=== PATIENT | male | born 1950 | race Two or more races ===

== ENCOUNTER 2017-11-22 06:50 | Day surgery (SDC) | payer OTHER ==
[~2017-11-22 06:50] MED LIST: ACCUPRIL40 MG PO; PRILOSEC10 MG PO; TENORMIN50 M1 PO
== END 2017-11-22 11:45 | disposition home or self-care (01) ==
LOC: AMB-ENDOS 06:50
DX: D12.2 Benign neoplasm of ascending colon (principal)

== ENCOUNTER 2018-06-29 08:29 | Outpatient (CLI) | payer OTHER | END 2018-06-29 08:35 | disposition home or self-care (01) | LOC: TOM 08:29 | DX: C20 Malignant neoplasm of rectum (principal); K62.5 Hemorrhage of anus and rectum; K62.89 Other specified diseases of anus and rectum; R59.0 Localized enlarged lymph nodes ==

== ENCOUNTER 2018-08-22 07:40 | Day surgery (SDC) | payer OTHER | END 2018-08-22 13:45 | disposition home or self-care (01) | LOC: AMB-ENDOS 07:40 | DX: K57.30 Diverticulosis of large intestine without perforation or abscess without bleeding (principal) ==

== ENCOUNTER 2024-09-25 11:30 | Inpatient (IN) | payer OTHER ==
[~2024-09-25] VITALS: Ht 180.3 cm; Wt 83.9 kg
--- NOTE | 2024-09-25 11:51 | NUR ---
SE RECIBE PACIENTE ALERTA Y ORIENTADO X3 REFIERE VENIR POR DOLOR EN AREA LUMBAR CRONICA Y CON REFERIDO DE DR.NICOLAS MELISSA ANDRE PARA SER ADMITIDO PARA TX Y ESTUDIOS DIAGNOSTICO. PACIENTE CON HX DE CANCER.
[2024-09-25] MEDS ORDERED: TRAMADOL HCL 50 MG TABLET PO ONE (12:45)
--- NOTE | 2024-09-25 13:37 | NUR ---
PTE EVALUADO POR LA DRA. TONEY. SAUL MARAVILLAAD ADMINISTRA MEDICAMENTO PO. SE NOTIFICA CT PENDIENTE.
[2024-09-25] MEDS ORDERED: MORPHINE SULFATE 2 MG/ML CARTRIDGE IV SCH (14:30)
[2024-09-25] MEDS ORDERED: FAMOtidine 10 MG/ML (4ML VIAL) IV ONE (14:30)
[2024-09-25] MEDS ORDERED: LOPERAMIDE HCL 2 MG CAPSULE PO ONE ×2 (15:15→15:19)
[2024-09-25] MEDS ORDERED: FAMOTIDINE/PF 20 MG/2 ML VIAL ONE (15:19)
--- NOTE | 2024-09-25 15:24 | NUR ---
SE ADMINISTRA MEDICAMENTO Y SE EXTRAEN MUESTRAS BAJO MEDIDAS ASEPTICAS.
[2024-09-25 15:41] LABS: HEMATOCRIT 31.7 % (39.0-48.0); HEMOGLOBIN 10.2 g/dL (13-16.00); MEAN CELL VOLUME 84.1 fL (80.0-100.00); MEAN CORPUSCULAR HEMOGLOBIN 27.2 pg (27.00-32.0); MEAN CORPUSCULAR HGB CONC 32.3 g/dl (32.0-36.0); PLATELET COUNT 415 K/uL (150-450); RED BLOOD COUNT 3.76 M/uL (4.00-6.00); RED CELL DISTRIBUTION WIDTH 16.1 % (11.5-14.5)
[2024-09-25 15:56] LABS: INR 1.01; PARTIAL THROMBOPLASTIN TIME 27.6 SECONDS (22.0-34.0)
[2024-09-25 16:01] LABS: ALBUMIN 2.6 gm/dL (3.4-5.0); BILIRUBIN TOTAL 0.15 mg/dL (0.3-1.2); CALCIUM 9.8 mg/dL (8.5-10.1); CREATININE SERUM 1.51 mg/dL (0.70-1.30); GFR 45.65; GLOBULINA 5.6 G/DL (2.4-3.5); POTASSIUM 5.79 mEq/L (3.5-5.1); TOTAL PROTEIN 8.2 gm/dL (6.4-8.2)
[2024-09-25] MEDS ORDERED: DEXTROSE 5 %-0.45 % SOD CHLORD 1,000 ML IV SCH (17:45)
[2024-09-25] MEDS ORDERED: KETOROLAC TROMETHAMINE 30 MG VIAL IV PRN (17:45)
[2024-09-25] MEDS ORDERED: MORPHINE SULFATE 4 MG/ML VIAL IV PRN (17:45)
[2024-09-25] MEDS ORDERED: GABAPENTIN 300 MG CAPSULE PO PRN (17:45)
[2024-09-25] MEDS ORDERED: ACETAMINOPHEN 500 MG GEL..CAP PO PRN (17:45)
[2024-09-25] MEDS ORDERED: PIPERACILLIN/TAZOBACTAM SODIUM 3.375 GM VIAL IV SCH (18:00)
[2024-09-25 20:00] VITALS: BP 153/87; O2SAT 94
[2024-09-25] MEDS ORDERED: Duloxetine HCl 30 MG CAPSULE.DR PO STA (22:04)
[2024-09-25] MEDS ORDERED: Duloxetine HCl 30 MG CAPSULE.DR PO SCH (22:04)
[2024-09-26 00:03] VITALS: BP 146/73; O2SAT 97
[2024-09-26] MEDS ORDERED: hydrALAZINE HCL 20 MG VIAL IV PRN ×2 (05:00→17:00)
[2024-09-26] MEDS ORDERED: ZINC OXIDE 30 GM TUBE TOP SCH ×2 (05:00→09:00)
[2024-09-26 08:00] VITALS: BP 134/76; O2SAT 97
[2024-09-26 09:15] LABS: HEMATOCRIT 28.1 % (39.0-48.0); HEMOGLOBIN 9.3 g/dL (13-16.00); MEAN CORPUSCULAR HEMOGLOBIN 27.5 pg (27.00-32.0); MEAN CORPUSCULAR HGB CONC 33.2 g/dl (32.0-36.0); PLATELET COUNT 377 K/uL (150-450); RED BLOOD COUNT 3.39 M/uL (4.00-6.00); RED CELL DISTRIBUTION WIDTH 16.1 % (11.5-14.5)
[2024-09-26 09:27] LABS: CALCIUM 8.9 mg/dL (8.5-10.1); CREATININE SERUM 1.28 mg/dL (0.70-1.30); GFR 55.24; MAGNESIUM 1.6 mg/dL (1.8-2.4); PHOSPHOROUS 4.2 mg/dL (2.5-4.9); POTASSIUM 5.22 mEq/L (3.5-5.1)
[2024-09-26] MEDS ORDERED: MAGNESIUM SULFATE IN WATER 50 ML IV NR (12:00)
[2024-09-26 16:37] VITALS: BP 123/73; O2SAT 95
[2024-09-26] MEDS ORDERED: SOD FERRIC GLUC COMPLX/SUCROSE 62.5 MG in 0.9 % SODIUM CHLORIDE 50 ML IV SCH (17:00)
[2024-09-26] MEDS ORDERED: ENOXAPARIN SODIUM 40 MG/0.4 ML SYRINGE SUBCUTANEO SCH (17:00)
[2024-09-27 00:19] VITALS: BP 118/72; O2SAT 98
[2024-09-27] MEDS ORDERED: INSULIN LISPRO 1,000 UNIT/10 ML UNITS SUBCUTANEO PRN (04:45)
[2024-09-27] MEDS ORDERED: DEXTROSE 50 % IN WATER 0.5 G/ML VIAL IV PRN (04:45)
[2024-09-27] MEDS ORDERED: LINEZOLID IN DEXTROSE 5% 300 ML IV SCH (04:45)
[2024-09-27 06:47] LABS: HEMATOCRIT 28.1 % (39.0-48.0); HEMOGLOBIN 9.1 g/dL (13-16.00); MEAN CELL VOLUME 84.1 fL (80.0-100.00); MEAN CORPUSCULAR HEMOGLOBIN 27.4 pg (27.00-32.0); MEAN CORPUSCULAR HGB CONC 32.6 g/dl (32.0-36.0); PLATELET COUNT 369 K/uL (150-450); RED BLOOD COUNT 3.34 M/uL (4.00-6.00); RED CELL DISTRIBUTION WIDTH 16.1 % (11.5-14.5)
[2024-09-27 07:08] LABS: ERYTHROCYTE SEDIMENTATION RATE 105 mm/hr
[2024-09-27 07:15] LABS: CALCIUM 8.9 mg/dL (8.5-10.1); CREATININE SERUM 1.46 mg/dL (0.70-1.30); GFR 47.46; PHOSPHOROUS 4.1 mg/dL (2.5-4.9); POTASSIUM 5.56 mEq/L (3.5-5.1)
[2024-09-27 07:16] LABS: C-REACTIVE PROTEIN 10.4 MG/DL (0.00-0.29)
[2024-09-27 08:00] VITALS: BP 120/67; O2SAT 94
[2024-09-27 14:58] LABS: URINE APPEARANCE Clear; URINE BILIRRUBIN Negative (NEGATIVE); URINE BLOOD Negative; URINE COLOR Yellow; URINE GLUCOSE Negative (NEGATIVE); URINE KETONE Negative (NEGATIVE); URINE LEUKOCYTE Negative; URINE NITRATE Negative; URINE PROTEIN Negative (NEGATIVE); URINE UROBILINOGEN 0.2 E.U./dl
[2024-09-27 15:12] LABS: URINE BACTERIA 2.4 uL (0.0-1933); URINE CAST 0.14 uL (0.0-1.40); URINE EPITHELIAL CELLS 0.9 uL (0.0-38.8); URINE RBC 1.7 uL (0.0-20.8); URINE WBC 0.6 uL (0.0-23.2)
[2024-09-27 17:54] VITALS: BP 148/68; O2SAT 100
[2024-09-27] MEDS ORDERED: MORPHINE SULFATE 2 MG/ML CARTRIDGE IV STA (19:40)
[2024-09-27] MEDS ORDERED: GABAPENTIN 300 MG CAPSULE PO PRN (19:45)
[2024-09-28 00:38] VITALS: BP 121/76; O2SAT 96
[2024-09-28] MEDS ORDERED: AMINO ACIDS/PROTEIN HYDROLYS 30 ML BLIST.PACK PO SCH (09:00)
[2024-09-28] MEDS ORDERED: LACTOBACILLUS ACIDOPHILUS 1 CAP CAP PO SCH (09:00)
[2024-09-28 09:02] LABS: ALBUMIN 2.3 gm/dL (3.4-5.0); CREATININE SERUM 1.34 mg/dL (0.70-1.30); GFR 52.4; MAGNESIUM 1.7 mg/dL (1.8-2.4); POTASSIUM 5.35 mEq/L (3.5-5.1)
[2024-09-28 09:45] VITALS: BP 144/80; O2SAT 95
[2024-09-28] MEDS ORDERED: POLYETHYLENE GLYCOL 3350 238 GM POWDER PO NR (12:00)
[2024-09-28 16:00] VITALS: BP 150/73; O2SAT 95
[2024-09-28] MEDS ORDERED: MAGNESIUM SULFATE IN WATER 50 ML IV NR (17:00)
[2024-09-28] MEDS ORDERED: LINEZOLID 600 MG TABLET PO SCH (21:00)
[2024-09-29] VITALS: BP 133/71; O2SAT 97
[2024-09-29 08:00] VITALS: BP 144/80; O2SAT 95
[2024-09-29 09:16] LABS: ALBUMIN 2.6 gm/dL (3.4-5.0); CREATININE SERUM 1.23 mg/dL (0.70-1.30); GFR 57.84; PHOSPHOROUS 3.7 mg/dL (2.5-4.9); POTASSIUM 4.84 mEq/L (3.5-5.1)
[2024-09-29] MEDS ORDERED: MORPHINE SULFATE 4 MG/ML VIAL IV PRN (20:00)
[2024-09-29] MEDS ORDERED: HEMOSTATIC MATRIX 1 KIT KIT TOP ONE (20:30)
[2024-09-30 01:39] VITALS: BP 129/62; O2SAT 99
[2024-09-30 08:00] VITALS: BP 162/75; O2SAT 95
[2024-09-30 16:00] VITALS: BP 149/78; O2SAT 95
[2024-09-30] MEDS ORDERED: OxyCODONE HCL 5 MG TABLET (ROXICODONE) PO PRN (18:30)
[2024-10-01 08:00] VITALS: BP 162/71; O2SAT 99
[2024-10-01 14:01] LABS: HEMATOCRIT 28.5 % (39.0-48.0); HEMOGLOBIN 9.5 g/dL (13-16.00); MEAN CORPUSCULAR HEMOGLOBIN 27.8 pg (27.00-32.0); MEAN CORPUSCULAR HGB CONC 33.4 g/dl (32.0-36.0); PLATELET COUNT 382 K/uL (150-450); RED BLOOD COUNT 3.44 M/uL (4.00-6.00); RED CELL DISTRIBUTION WIDTH 15.9 % (11.5-14.5)
[2024-10-01 14:20] LABS: CALCIUM 8.6 mg/dL (8.5-10.1); CREATININE SERUM 1.07 mg/dL (0.70-1.30); GFR 67.93; MAGNESIUM 1.7 mg/dL (1.8-2.4); PHOSPHOROUS 3.1 mg/dL (2.5-4.9); POTASSIUM 4.54 mEq/L (3.5-5.1)
[2024-10-01 16:30] VITALS: BP 183/81; O2SAT 97
[2024-10-01 23:31] VITALS: BP 171/87; O2SAT 98
[2024-10-02] MEDS ORDERED: MAGNESIUM SULFATE IN WATER 50 ML IV ONE (04:15)
[2024-10-02] MEDS ORDERED: FUROsemide 20 MG/2 ML VIAL IV SCH (07:30)
[2024-10-02 08:54] VITALS: BP 174/76
[2024-10-02] MEDS ORDERED: PANTOPRAZOLE SODIUM 40 MG in 0.9 % SODIUM CHLORIDE 8 ML IV PUSH SCH (09:00)
[2024-10-02] MEDS ORDERED: SUCRALFATE 1 G TABLET PO SCH (09:00)
[2024-10-02 16:25] VITALS: BP 173/74; O2SAT 96
[2024-10-03 00:11] VITALS: BP 177/79; O2SAT 95
[2024-10-03] MEDS ORDERED: LOSARTAN POTASSIUM 50 MG TABLET PO STA (04:58)
[2024-10-03 08:00] VITALS: BP 180/64; O2SAT 94
[2024-10-03 15:08] LABS: ALDOSTERONE SERUM < 1.0 ng/dL (0.0-30.0)
[2024-10-03] MEDS ORDERED: MORPHINE SULFATE 4 MG/ML VIAL IV ONE (17:00)
[2024-10-03 18:15] LABS: HEMOGLOBIN 10.2 g/dL (13-16.00); MEAN CELL VOLUME 83.4 fL (80.0-100.00); MEAN CORPUSCULAR HEMOGLOBIN 27.4 pg (27.00-32.0); MEAN CORPUSCULAR HGB CONC 32.8 g/dl (32.0-36.0); PLATELET COUNT 420 K/uL (150-450); RED BLOOD COUNT 3.72 M/uL (4.00-6.00); RED CELL DISTRIBUTION WIDTH 16.2 % (11.5-14.5)
[2024-10-03 18:20] VITALS: BP 163/70; O2SAT 96
[2024-10-03 23:07] LABS: RENIN ACTIVITY 1.104 ng/mL/hr (0.167-5.380)
[2024-10-04] MEDS ORDERED: PANTOPRAZOLE SODIUM 40 MG/VIAL VIAL IV PUSH SCH (00:45)
[2024-10-04 00:56] VITALS: BP 141/70; O2SAT 98
[2024-10-04 08:00] VITALS: BP 162/73; O2SAT 91
[2024-10-04] MEDS ORDERED: POLYETHYLENE GLYCOL 3350 17 GM BLIST.PACK PO SCH (09:00)
[2024-10-04] MEDS ORDERED: RINGERS SOLUTION,LACTATED 1,000 ML IV SCH (09:45)
[2024-10-04] MEDS ORDERED: ONDANSETRON HCL 2 MG/ML VIAL IV PRN (12:00)
[2024-10-04 14:20] VITALS: BP 190/88; O2SAT 95
[2024-10-04 17:00] VITALS: BP 173/82; O2SAT 96
[2024-10-04] MEDS ORDERED: ENOXAPARIN SODIUM 40 MG/0.4 ML SYRINGE SUBCUTANEO SCH (17:00)
[2024-10-04] MEDS ORDERED: ENALAPRILAT DIHYDRATE 1.25 MG/ML VIAL IV STA (18:59)
[2024-10-04 20:30] VITALS: BP 154/96; O2SAT 93
[2024-10-04] MEDS ORDERED: MORPHINE SULFATE 4 MG/ML VIAL IV PRN (20:50)
[2024-10-04] MEDS ORDERED: ATENOLOL 50 MG TABLET PO STA (20:51)
[2024-10-04] MEDS ORDERED: DIPHENHYDRAMINE HCL 50 MG/ML VIAL 1ML IV PRN (21:00)
[2024-10-04] MEDS ORDERED: ENALAPRILAT DIHYDRATE 1.25 MG/ML VIAL IV PRN (21:00)
[2024-10-04] MEDS ORDERED: NALOXONE HCL 0.4 MG/ML AMPUL IV PRN (21:00)
[2024-10-04 21:05] VITALS: BP 145/84; O2SAT 94
[2024-10-05] VITALS (7 sets, daily range): BP systolic 141–207; BP diastolic 78–98; O2SAT 92–98
[2024-10-05] MEDS ORDERED: GABAPENTIN 300 MG CAPSULE PO SCH (01:00)
[2024-10-05] MEDS ORDERED: MORPHINE SULFATE 2 MG/ML CARTRIDGE IV PRN (06:15)
[2024-10-05 06:36] LABS: HEMATOCRIT 32.9 % (39.0-48.0); HEMOGLOBIN 10.7 g/dL (13-16.00); MEAN CELL VOLUME 83.3 fL (80.0-100.00); MEAN CORPUSCULAR HEMOGLOBIN 27.2 pg (27.00-32.0); MEAN CORPUSCULAR HGB CONC 32.6 g/dl (32.0-36.0); PLATELET COUNT 474 K/uL (150-450); RED BLOOD COUNT 3.94 M/uL (4.00-6.00); RED CELL DISTRIBUTION WIDTH 16.1 % (11.5-14.5)
[2024-10-05 07:02] LABS: CALCIUM 9.3 mg/dL (8.5-10.1); CREATININE SERUM 0.95 mg/dL (0.70-1.30); GFR 77.93; MAGNESIUM 1.9 mg/dL (1.8-2.4); PHOSPHOROUS 3.3 mg/dL (2.5-4.9); POTASSIUM 3.68 mEq/L (3.5-5.1)
[2024-10-05] MEDS ORDERED: ATENOLOL 50 MG TABLET PO SCH ×2 (09:00)
[2024-10-05] MEDS ORDERED: ENALAPRIL MALEATE 10 MG TABLET PO SCH (09:00)
[2024-10-05] MEDS ORDERED: ENOXAPARIN SODIUM 40 MG/0.4 ML SYRINGE SUBCUTANEO SCH (09:00)
[2024-10-05] MEDS ORDERED: METOCLOPRAMIDE HCL 5 MG/5 ML BLIST.PACK PO SCH (14:19)
[2024-10-05] MEDS ORDERED: METOCLOPRAMIDE HCL 5 MG/ML VIAL IV STA (14:43)
[2024-10-05] MEDS ORDERED: LABETALOL HCL 100 MG/20 ML ML IV STA (18:19)
[2024-10-05] MEDS ORDERED: METOCLOPRAMIDE HCL 5 MG/ML VIAL IV SCH (21:00)
[2024-10-06] VITALS: BP 182/84; O2SAT 96
[2024-10-06 03:39] VITALS: BP 166/90
[2024-10-06] MEDS ORDERED: ENALAPRILAT DIHYDRATE 1.25 MG/ML VIAL IV SCH (06:00)
[2024-10-06 07:05] LABS: HEMATOCRIT 31.5 % (39.0-48.0); HEMOGLOBIN 10.4 g/dL (13-16.00); MEAN CELL VOLUME 83.6 fL (80.0-100.00); MEAN CORPUSCULAR HEMOGLOBIN 27.6 pg (27.00-32.0); PLATELET COUNT 471 K/uL (150-450); RED BLOOD COUNT 3.77 M/uL (4.00-6.00); RED CELL DISTRIBUTION WIDTH 16.1 % (11.5-14.5)
[2024-10-06 07:51] LABS: CALCIUM 9.1 mg/dL (8.5-10.1); CREATININE SERUM 0.9 mg/dL (0.70-1.30); GFR 82.95; POTASSIUM 3.88 mEq/L (3.5-5.1)
[2024-10-06 08:00] VITALS: BP 190/90; O2SAT 95
[2024-10-06] MEDS ORDERED: cloNIDine 0.2 MG/24 H PATCH.TDWK TD NR (11:00)
[2024-10-06 15:50] VITALS: BP 177/95; O2SAT 96
[2024-10-06 16:20] LABS: CALCIUM 8.9 mg/dL (8.5-10.1); CHOL HDL RATIO 4.1 (0-5.0); CREATININE SERUM 1.01 mg/dL (0.70-1.30); GFR 72.61; POTASSIUM 4.24 mEq/L (3.5-5.1)
[2024-10-06] MEDS ORDERED: AA 4.25%/CAL/LYTES/DEXT 5% 1,000 ML PERIFERAL SCH (17:00)
[2024-10-06] MEDS ORDERED: FAMOTIDINE/PF 20 MG/2 ML VIAL IV SCH (21:00)
[2024-10-06] MEDS ORDERED: GABAPENTIN 300 MG CAPSULE PO STA (21:50)
[2024-10-06] MEDS ORDERED: GABAPENTIN 300 MG CAPSULE PO SCH (21:50)
[2024-10-07 00:50] VITALS: BP 169/89; O2SAT 96
[2024-10-07] MEDS ORDERED: ENALAPRILAT DIHYDRATE 1.25 MG/ML VIAL IV PRN (05:45)
[2024-10-07 07:00] VITALS: BP 190/84; O2SAT 96
[2024-10-07] MEDS ORDERED: HYOSCYAMINE SULFATE 0.125 MG TAB.SUBL SL SCH (09:00)
[2024-10-07] MEDS ORDERED: LISINOPRIL 40 MG TABLET PO SCH (09:00)
[2024-10-07] MEDS ORDERED: SIMETHICONE 125 MG CAPSULE PO SCH (09:00)
[2024-10-07 16:00] VITALS: BP 170/82; O2SAT 95
[2024-10-07] MEDS ORDERED: hydrALAZINE HCL 20 MG VIAL IV PRN (16:15)
[2024-10-08 00:07] VITALS: BP 197/86; O2SAT 99
[2024-10-08 08:16] VITALS: BP 165/85; O2SAT 94
[2024-10-08] MEDS ORDERED: HYDROCHLOROTHIAZIDE 25 MG TABLET PO SCH (12:00)
[2024-10-08 16:00] VITALS: BP 170/90; O2SAT 94
[2024-10-09 01:10] VITALS: BP 162/85; O2SAT 93
[2024-10-09 08:00] VITALS: BP 175/93; O2SAT 92
[2024-10-09 11:25] LABS: BASO % 0.2 % (0.1-1.2); EOS # 0.01 (0.04-0.54); EOS % 0.1 % (0.7-7.0); HEMATOCRIT 31.7 % (40.1-51.0); HEMOGLOBIN 10.3 g/dL (13.7-17.5); LYMPH % 4.6 % (19.3-53.1); MEAN CORPUSCULAR HEMOGLOBIN 27.2 pg (25.6-32.2); MONO # 0.95 (0.24-0.82); MONO % 7.3 % (4.7-12.5); NEUT # 11.37 (1.56-6.13); NEUT % 87.5 % (34.0-71.1); PLATELET COUNT 413 K/uL (163-369); RED BLOOD COUNT 3.78 M/uL (4.63-6.08)
[2024-10-09 11:27] LABS: INR 1.1; PROTHROMBIN TIME 11.9 SECONDS (9.0-11.5)
[2024-10-09 11:52] LABS: ALBUMIN 2.5 gm/dL (3.4-5.0); BILIRUBIN TOTAL 1.23 mg/dL (0.3-1.2); BILIRUBIN,CONJUGATED 0.72 mg/dL (0.0-0.2); BILIRUBIN,UNCONJUGATED 0.51 mg/dL (0.0-0.6); CALCIUM 9.4 mg/dL (8.5-10.1); CREATININE SERUM 0.98 mg/dL (0.70-1.30); GFR 75.18; GLOBULINA 4.8 G/DL (2.4-3.5); POTASSIUM 4.07 mEq/L (3.5-5.1); TOTAL PROTEIN 7.3 gm/dL (6.4-8.2)
[2024-10-09] MEDS ORDERED: CLOTRIMAZOLE 10 MG TROCHE MM SCH (13:00)
[2024-10-09 16:00] VITALS: BP 158/78; O2SAT 91
[2024-10-09] MEDS ORDERED: ATENOLOL 50 MG TABLET PO SCH (21:00)
[2024-10-10 07:05] LABS: BASO % 0.2 % (0.1-1.2); EOS # 0.12 (0.04-0.54); HEMATOCRIT 28.3 % (40.1-51.0); HEMOGLOBIN 9.4 g/dL (13.7-17.5); LYMPH # 0.88 (1.18-3.74); LYMPH % 7.6 % (19.3-53.1); MEAN CORPUSCULAR HEMOGLOBIN 27.4 pg (25.6-32.2); MONO # 1.19 (0.24-0.82); MONO % 10.3 % (4.7-12.5); NEUT % 80.4 % (34.0-71.1); PLATELET COUNT 357 K/uL (163-369); RED BLOOD COUNT 3.43 M/uL (4.63-6.08); RED CELL DISTRIBUTION WIDTH 16.5 % (11.6-14.4)
[2024-10-10 07:50] LABS: ALBUMIN 2.2 gm/dL (3.4-5.0); BILIRUBIN TOTAL 0.94 mg/dL (0.3-1.2); BILIRUBIN,CONJUGATED 0.56 mg/dL (0.0-0.2); BILIRUBIN,UNCONJUGATED 0.38 mg/dL (0.0-0.6); TOTAL PROTEIN 6.4 gm/dL (6.4-8.2)
[2024-10-10 08:00] VITALS: BP 168/85; O2SAT 92
[2024-10-10 08:05] LABS: C-REACTIVE PROTEIN 17.6 MG/DL (0.00-0.29)
[2024-10-10 16:10] VITALS: BP 127/84; O2SAT 93
[2024-10-11 01:00] VITALS: BP 130/84; O2SAT 91
[2024-10-11 08:00] VITALS: BP 148/81; O2SAT 91
[2024-10-11] MEDS ORDERED: LOPERAMIDE HCL 2 MG CAPSULE PO SCH (09:00)
[2024-10-11] MEDS ORDERED: PANTOPRAZOLE SODIUM 40 MG/VIAL VIAL IV SCH (09:00)
[2024-10-11] MEDS ORDERED: SIMETHICONE 125 MG CAPSULE PO SCH (09:00)
[2024-10-11 11:54] LABS: ALBUMIN 2.4 gm/dL (3.4-5.0); CALCIUM 9.2 mg/dL (8.5-10.1); CREATININE SERUM 1.03 mg/dL (0.70-1.30); GFR 70.99; POTASSIUM 3.72 mEq/L (3.5-5.1)
[2024-10-11 16:40] VITALS: BP 149/87; O2SAT 93
[2024-10-11] MEDS ORDERED: GABAPENTIN 100 MG CAPSULE PO SCH (17:00)
[2024-10-11] MEDS ORDERED: GABAPENTIN 300 MG CAPSULE PO SCH (21:00)
[2024-10-12 00:31] VITALS: BP 131/79; O2SAT 91
[2024-10-12 07:08] LABS: BASO % 0.5 % (0.1-1.2); EOS % 1.3 % (0.7-7.0); HEMATOCRIT 31.3 % (40.1-51.0); HEMOGLOBIN 10.3 g/dL (13.7-17.5); LYMPH % 12.6 % (19.3-53.1); MEAN CORPUSCULAR HEMOGLOBIN 27.6 pg (25.6-32.2); MONO # 1.34 (0.24-0.82); NEUT # 5.34 (1.56-6.13); NEUT % 67.2 % (34.0-71.1); PLATELET COUNT 410 K/uL (163-369); RED BLOOD COUNT 3.73 M/uL (4.63-6.08); RED CELL DISTRIBUTION WIDTH 16.2 % (11.6-14.4)
[2024-10-12 07:24] LABS: MONO % 16.9 % (4.7-12.5)
[2024-10-12 07:32] LABS: CALCIUM 8.8 mg/dL (8.5-10.1); CREATININE SERUM 1.06 mg/dL (0.70-1.30); GFR 68.67; MAGNESIUM 1.8 mg/dL (1.8-2.4); PHOSPHOROUS 2.8 mg/dL (2.5-4.9); POTASSIUM 4.17 mEq/L (3.5-5.1)
[2024-10-12 08:00] VITALS: BP 153/88; O2SAT 96
[2024-10-12] MEDS ORDERED: LOPERAMIDE HCL 2 MG CAPSULE PO SCH (09:00)
[2024-10-12 16:00] VITALS: BP 112/71; BP 124/78; O2SAT 96; O2SAT 99
[2024-10-13] VITALS: BP 135/63; O2SAT 96
[2024-10-13 07:21] LABS: BASO % 0.7 % (0.1-1.2); EOS # 0.11 (0.04-0.54); EOS % 1.6 % (0.7-7.0); HEMOGLOBIN 10.3 g/dL (13.7-17.5); LYMPH # 1.05 (1.18-3.74); LYMPH % 14.9 % (19.3-53.1); MEAN CORPUSCULAR HEMOGLOBIN 26.8 pg (25.6-32.2); MONO # 1.28 (0.24-0.82); NEUT # 4.37 (1.56-6.13); PLATELET COUNT 386 K/uL (163-369); RED BLOOD COUNT 3.85 M/uL (4.63-6.08); RED CELL DISTRIBUTION WIDTH 16.4 % (11.6-14.4)
[2024-10-13 07:37] LABS: MONO % 18.2 % (4.7-12.5)
[2024-10-13 07:54] VITALS: BP 125/70; O2SAT 95
[2024-10-13 08:18] LABS: CREATININE SERUM 1.25 mg/dL (0.70-1.30); GFR 56.78; MAGNESIUM 1.6 mg/dL (1.8-2.4); PHOSPHOROUS 2.9 mg/dL (2.5-4.9); POTASSIUM 4.59 mEq/L (3.5-5.1)
[2024-10-13 08:19] LABS: C-REACTIVE PROTEIN 13.6 MG/DL (0.00-0.29)
[2024-10-13] MEDS ORDERED: cloNIDine 0.2 MG/24 H PATCH.TDWK TD SCH (09:00)
[2024-10-13] MEDS ORDERED: HYDROCHLOROTHIAZIDE 12.5 MG CAPSULE PO SCH (09:00)
[2024-10-13] MEDS ORDERED: LOPERAMIDE HCL 2 MG CAPSULE PO SCH ×2 (09:00→13:00)
[2024-10-13] MEDS ORDERED: CHOLESTYRAMINE/ASPARTAME LIGHT 4 G/PKT PACKET PO SCH (11:26)
[2024-10-13] MEDS ORDERED: MAGNESIUM SULFATE IN WATER 50 ML IV NR (11:30)
[2024-10-13 16:00] VITALS: BP 121/74; O2SAT 98
[2024-10-14 02:17] VITALS: BP 148/78; O2SAT 98
[2024-10-14 08:00] VITALS: BP 162/84; O2SAT 97
[2024-10-14] MEDS ORDERED: LOPERAMIDE HCL 2 MG CAPSULE PO SCH (09:00)
[2024-10-14 15:52] VITALS: BP 150/74; O2SAT 93
[2024-10-15 01:39] VITALS: BP 138/77; O2SAT 97
[2024-10-15 07:39] LABS: BASO % 0.7 % (0.1-1.2); EOS % 1.3 % (0.7-7.0); HEMATOCRIT 28.9 % (40.1-51.0); HEMOGLOBIN 9.5 g/dL (13.7-17.5); LYMPH % 22.9 % (19.3-53.1); MEAN CORPUSCULAR HEMOGLOBIN 27.7 pg (25.6-32.2); MONO # 0.95 (0.24-0.82); NEUT # 4.23 (1.56-6.13); NEUT % 57.2 % (34.0-71.1); PLATELET COUNT 379 K/uL (163-369); RED BLOOD COUNT 3.43 M/uL (4.63-6.08); RED CELL DISTRIBUTION WIDTH 16.3 % (11.6-14.4)
[2024-10-15 08:15] LABS: CALCIUM 8.4 mg/dL (8.5-10.1); CREATININE SERUM 0.94 mg/dL (0.70-1.30); GFR 78.89; PHOSPHOROUS 2.2 mg/dL (2.5-4.9)
[2024-10-15 08:38] LABS: MONO % 12.8 % (4.7-12.5)
[2024-10-15 08:54] LABS: C-REACTIVE PROTEIN 7.32 MG/DL (0.00-0.29); MAGNESIUM 1.4 mg/dL (1.8-2.4)
[2024-10-15] MEDS ORDERED: TYLENOL ARTHRI650 MG PO (11:11)
[2024-10-15] MEDS ORDERED: IMODIUM A-D2 MG PO (11:11)
[2024-10-15] MEDS ORDERED: INTEGRA F CAPS1 EACH PO (11:11)
[2024-10-15] MEDS ORDERED: PRILOSEC OTC20 MG PO (11:11)
[2024-10-15] MEDS ORDERED: NEURONTIN300 MG PO (11:11)
[2024-10-15] MEDS ORDERED: ATENOLOL50 MG PO (11:15)
[2024-10-15] MEDS ORDERED: LISINOPRIL40 MG PO (11:15)
== END 2024-10-15 11:40 | disposition home or self-care (01) | DRG 330 ==
LOC: ER 11:31 → SURG 19:02
PROVIDERS: General Practice; Internal Medicine Geriatric Medicine; Internal Medicine Nephrology; ADMIT Surgery; ATTEND Surgery
PROC: BR39ZZZ Magnetic Resonance Imaging (MRI) of Lumbar Spine (ICD-10-PCS; 2024-09-25)
PROC: B246ZZZ Ultrasonography of Right and Left Heart (ICD-10-PCS; 2024-09-26)
PROC: BR3CYZZ Magnetic Resonance Imaging (MRI) of Pelvis using Other Contrast (ICD-10-PCS; 2024-09-27)
PROC: 02HV33Z Insertion of Infusion Device into Superior Vena Cava, Percutaneous Approach (ICD-10-PCS; 2024-09-28)
PROC: 0D9Q70Z Drainage of Anus with Drainage Device, Via Natural or Artificial Opening (ICD-10-PCS; 2024-09-29)
PROC: 0D1B4Z4 Bypass Ileum to Cutaneous, Percutaneous Endoscopic Approach (ICD-10-PCS; principal; 2024-10-03 07:00)
DX: K61.0 Anal abscess (principal); C20 Malignant neoplasm of rectum; K62.89 Other specified diseases of anus and rectum; K27.9 Peptic ulcer, site unspecified, unspecified as acute or chronic, without hemorrhage or perforation; M60.88 Other myositis, other site; K62.7 Radiation proctitis; N50.89 Other specified disorders of the male genital organs; I49.8 Other specified cardiac arrhythmias; I11.0 Hypertensive heart disease with heart failure
CPT/HCPCS: 72198

== ENCOUNTER 2024-11-15 08:37 | Inpatient (IN) | payer OTHER ==
[~2024-11-15] VITALS: Ht 180.3 cm; Wt 81.6 kg
[~2024-11-15 08:37] MED LIST changes: +ATENOLOL50 MG PO; +IMODIUM A-D2 MG PO; +INTEGRA F CAPS1 EACH PO; +LISINOPRIL40 MG PO; +NEURONTIN300 MG PO; +PRILOSEC OTC20 MG PO; +TYLENOL ARTHRI650 MG PO
[2024-11-15] MEDS ORDERED: PRILOSEC10 MG PO (09:04)
[2024-11-15 09:58] LABS: BASO % 0.5 % (0.1-1.2); EOS # 0.03 (0.04-0.54); EOS % 0.2 % (0.7-7.0); HEMATOCRIT 40.3 % (40.1-51.0); HEMOGLOBIN 13.6 g/dL (13.7-17.5); LYMPH # 2.61 (1.18-3.74); LYMPH % 20.6 % (19.3-53.1); MEAN CORPUSCULAR HEMOGLOBIN 28.2 pg (25.6-32.2); MONO # 1.18 (0.24-0.82); MONO % 9.3 % (4.7-12.5); NEUT # 8.56 (1.56-6.13); NEUT % 67.4 % (34.0-71.1); PLATELET COUNT 318 K/uL (163-369); RED BLOOD COUNT 4.82 M/uL (4.63-6.08); RED CELL DISTRIBUTION WIDTH 18.6 % (11.6-14.4)
[2024-11-15 10:25] LABS: INR 1.15; PARTIAL THROMBOPLASTIN TIME 27.8 SECONDS (22.0-34.0); PROTHROMBIN TIME 12.4 SECONDS (9.0-11.5)
[2024-11-15 10:46] LABS: COVID-19 AG NEGATIVE (NEGATIVE); INFLUENZA A AG NEGATIVE (NEGATIVE); INFLUENZA B AG NEGATIVE (NEGATIVE)
[2024-11-15 10:53] LABS: ALBUMIN 3.8 gm/dL (3.4-5.0); BILIRUBIN TOTAL 0.42 mg/dL (0.3-1.2); BILIRUBIN,CONJUGATED 0.18 mg/dL (0.0-0.2); BILIRUBIN,UNCONJUGATED 0.24 mg/dL (0.0-0.6); CALCIUM 6.7 mg/dL (8.5-10.1); GLOBULINA 4.9 G/DL (2.4-3.5); POTASSIUM 5.64 mEq/L (3.5-5.1); TOTAL PROTEIN 8.7 gm/dL (6.4-8.2)
[2024-11-15 10:59] LABS: GFR 11.18
[2024-11-15 11:01] LABS: CREATININE SERUM 5.11 mg/dL (0.70-1.30)
[2024-11-15 11:48] LABS: ABG PH 7.253 (7.35-7.45); ABG PO2 109.5 mmHg (80-100); BASE EXCESS -16.2 mmol/l; BICARBONATE 8.6 mmol/l (23-25); SaO2 96.8 %; Tco2 9.2 mmol/l
[2024-11-15 11:55] LABS: ABG pCO2 19.9 mmHg (35-45); allen test SATISFACTORY; mode NASAL CANNULA; o2 32 %; puncture site RADIAL LEFT
[2024-11-15] MEDS ORDERED: LOPERAMIDE HCL 2 MG CAPSULE PO ONE ×2 (12:58→13:00)
[2024-11-15] MEDS ORDERED: 0.9 % SODIUM CHLORIDE 1,000 ML IV SCH ×2 (13:30→13:45)
[2024-11-15] MEDS ORDERED: FAMOTIDINE/PF 20 MG/2 ML VIAL IV SCH (14:00)
[2024-11-15] MEDS ORDERED: hydrALAZINE HCL 20 MG VIAL IV PRN (14:00)
[2024-11-15] MEDS ORDERED: FAMOTIDINE/PF 20 MG/2 ML VIAL ONE (15:04)
[2024-11-15 17:26] VITALS: BP 116/73; O2SAT 100
[2024-11-15 17:55] LABS: URINE APPEARANCE Clear; URINE BILIRRUBIN Negative (NEGATIVE); URINE BLOOD Negative; URINE COLOR Yellow; URINE GLUCOSE Negative (NEGATIVE); URINE KETONE Negative (NEGATIVE); URINE LEUKOCYTE Negative; URINE NITRATE Negative; URINE PROTEIN 30 (NEGATIVE); URINE UROBILINOGEN 0.2 E.U./dl
[2024-11-15 17:58] LABS: URINE BACTERIA 42.8 uL (0.0-1933); URINE CAST 6.18 uL (0.0-1.40); URINE EPITHELIAL CELLS 7.2 uL (0.0-38.8); URINE RBC 6.7 uL (0.0-20.8); URINE WBC 6.3 uL (0.0-23.2)
[2024-11-15 18:32] LABS: URINE MUCUS SCANT
[2024-11-15 19:27] VITALS: BP 141/70; O2SAT 100
[2024-11-15 20:03] LABS: GFR 14.26
[2024-11-15 20:04] LABS: CREATININE SERUM 4.14 mg/dL (0.70-1.30)
[2024-11-15 20:05] LABS: POTASSIUM 6.07 mEq/L (3.5-5.1)
[2024-11-15 20:06] LABS: CALCIUM 5.9 mg/dL (8.5-10.1)
[2024-11-15] MEDS ORDERED: CALCIUM GLUCONATE 100 MG/ML VIAL IV STA (20:08)
[2024-11-15] MEDS ORDERED: INSULIN REGULAR, HUMAN 1,000 UNIT/10 ML UNITS IV STA (20:09)
[2024-11-15] MEDS ORDERED: DEXTROSE 5 % IN WATER 500 ML IV SCH (20:15)
[2024-11-15] MEDS ORDERED: SODIUM POLYSTYRENE SULFONATE 30G/8 TSP PO STA (20:36)
[2024-11-15] MEDS ORDERED: LOPERAMIDE HCL 2 MG CAPSULE PO STA (20:36)
[2024-11-15] MEDS ORDERED: SODIUM POLYSTYRENE SULFONATE 15 G/4 TSP TSP ONE (20:41)
[2024-11-15 21:00] VITALS: BP 110/61; O2SAT 100
[2024-11-15 23:06] VITALS: BP 128/61; O2SAT 100
[2024-11-16] MEDS ORDERED: SODIUM POLYSTYRENE SULFONATE 30G/8 TSP PO SCH
[2024-11-16] MEDS ORDERED: LOPERAMIDE HCL 2 MG CAPSULE PO SCH (05:00)
[2024-11-16 05:39] LABS: ABG PH 7.287 (7.35-7.45); ABG PO2 119.6 mmHg (80-100); ABG pCO2 24.1 mmHg (35-45); BASE EXCESS -13.3 mmol/l; BICARBONATE 11.3 mmol/l (23-25); SaO2 97.8 %
[2024-11-16 05:44] LABS: allen test SATISFACTORY; mode NASAL CANNULA; o2 32 %; puncture site RADIAL RIGHT
[2024-11-16 06:12] LABS: BASO % 0.7 % (0.1-1.2); EOS # 0.11 (0.04-0.54); EOS % 1.2 % (0.7-7.0); HEMOGLOBIN 10.6 g/dL (13.7-17.5); LYMPH # 2.34 (1.18-3.74); LYMPH % 25.5 % (19.3-53.1); MEAN CORPUSCULAR HEMOGLOBIN 29.4 pg (25.6-32.2); MONO # 1.12 (0.24-0.82); NEUT # 5.43 (1.56-6.13); NEUT % 59.1 % (34.0-71.1); PLATELET COUNT 213 K/uL (163-369); RED BLOOD COUNT 3.61 M/uL (4.63-6.08); RED CELL DISTRIBUTION WIDTH 18.6 % (11.6-14.4)
[2024-11-16] MEDS ORDERED: SODIUM BICARBONATE 50MEQ/50ML VIAL IV SCH (06:13)
[2024-11-16 06:19] LABS: MONO % 12.2 % (4.7-12.5)
[2024-11-16 06:53] LABS: ALBUMIN 2.7 gm/dL (3.4-5.0); BILIRUBIN TOTAL 0.45 mg/dL (0.3-1.2); CREATININE SERUM 3.11 mg/dL (0.70-1.30); GFR 19.83; GLOBULINA 3.5 G/DL (2.4-3.5); PHOSPHOROUS 5.9 mg/dL (2.5-4.9); POTASSIUM 5.29 mEq/L (3.5-5.1); TOTAL PROTEIN 6.2 gm/dL (6.4-8.2)
[2024-11-16] MEDS ORDERED: SODIUM BICARBONATE 50MEQ/50ML VIAL IV ONE (07:07)
[2024-11-16 07:13] LABS: C-REACTIVE PROTEIN 2.65 MG/DL (0.00-0.29)
[2024-11-16 07:14] LABS: CALCIUM 5.7 mg/dL (8.5-10.1); MAGNESIUM 0.3 mg/dL (1.8-2.4)
[2024-11-16 07:15] VITALS: BP 120/59; O2SAT 100
[2024-11-16] MEDS ORDERED: MAGNESIUM SULFATE IN WATER 50 ML IV ONE (07:15)
[2024-11-16] MEDS ORDERED: ENOXAPARIN SODIUM 30 MG/0.3 ML SYRINGE SUBCUTANEO SCH (11:45)
[2024-11-16 13:55] LABS: CREATININE SERUM 2.39 mg/dL (0.70-1.30); GFR 26.87; POTASSIUM 5.45 mEq/L (3.5-5.1)
[2024-11-16 13:57] LABS: CALCIUM 6.2 mg/dL (8.5-10.1)
[2024-11-16 14:00] VITALS: BP 126/72; O2SAT 95
[2024-11-16 16:47] VITALS: BP 117/68; O2SAT 95
[2024-11-16] MEDS ORDERED: ACETAMINOPHEN 500 MG GEL..CAP PO STA (19:05)
[2024-11-17] VITALS: BP 96/58; O2SAT 95
[2024-11-17] MEDS ORDERED: ACETAMINOPHEN 500 MG GEL..CAP PO SCH
[2024-11-17 06:55] LABS: CREATININE SERUM 1.77 mg/dL (0.70-1.30); PHOSPHOROUS 3.5 mg/dL (2.5-4.9); POTASSIUM 5.51 mEq/L (3.5-5.1)
[2024-11-17 07:20] LABS: CALCIUM 6.5 mg/dL (8.5-10.1); MAGNESIUM 0.8 mg/dL (1.8-2.4)
[2024-11-17 08:39] LABS: ABG PH 7.403 (7.35-7.45); ABG PO2 95.9 mmHg (80-100); ABG pCO2 27.7 mmHg (35-45); BASE EXCESS -6.2 mmol/l; BICARBONATE 16.9 mmol/l (23-25); SaO2 97.3 %; Tco2 17.7 mmol/l
[2024-11-17 08:41] LABS: allen test SATISFACTORY; mode ROOM AIR; o2 21 %; puncture site RADIAL RIGHT
[2024-11-17] MEDS ORDERED: FAMOTIDINE/PF 20 MG/2 ML VIAL IV SCH (09:00)
[2024-11-17 09:05] VITALS: BP 131/69; O2SAT 96
[2024-11-17] MEDS ORDERED: MAGNESIUM SULFATE IN WATER 50 ML IV NR (11:20)
[2024-11-17] MEDS ORDERED: PREDNISONE 10 MG TABLET PO SCH (11:58)
[2024-11-17] MEDS ORDERED: GABAPENTIN 300 MG CAPSULE PO STA (12:15)
[2024-11-17 16:00] VITALS: BP 139/68; O2SAT 98
[2024-11-17] MEDS ORDERED: GABAPENTIN 300 MG CAPSULE PO SCH (21:00)
[2024-11-18 03:44] VITALS: BP 143/80; O2SAT 100
[2024-11-18 08:04] LABS: ALBUMIN 2.4 gm/dL (3.4-5.0); CALCIUM 6.9 mg/dL (8.5-10.1); CREATININE SERUM 1.12 mg/dL (0.70-1.30); GFR 64.45; PHOSPHOROUS 2.4 mg/dL (2.5-4.9); POTASSIUM 5.47 mEq/L (3.5-5.1)
[2024-11-18 08:06] VITALS: BP 163/75; O2SAT 96
[2024-11-18] MEDS ORDERED: NAPH,MB-DB/K PH,MBDB 1 PKT PACKET PO SCH (12:00)
[2024-11-18 12:09] LABS: BASO % 0.4 % (0.1-1.2); EOS # 0.13 (0.04-0.54); EOS % 1.4 % (0.7-7.0); HEMATOCRIT 29.3 % (40.1-51.0); HEMOGLOBIN 9.8 g/dL (13.7-17.5); LYMPH # 1.73 (1.18-3.74); LYMPH % 18.5 % (19.3-53.1); MEAN CORPUSCULAR HEMOGLOBIN 29.3 pg (25.6-32.2); MONO # 1.33 (0.24-0.82); NEUT # 6.02 (1.56-6.13); NEUT % 64.5 % (34.0-71.1); PLATELET COUNT 215 K/uL (163-369); RED BLOOD COUNT 3.34 M/uL (4.63-6.08); RED CELL DISTRIBUTION WIDTH 19.5 % (11.6-14.4)
[2024-11-18 12:11] LABS: MONO % 14.3 % (4.7-12.5)
[2024-11-18] MEDS ORDERED: TRAMADOL HCL 50 MG TABLET PO PRN (14:30)
[2024-11-18 16:41] VITALS: BP 184/72; O2SAT 97
[2024-11-18 20:32] VITALS: BP 190/86; O2SAT 97
[2024-11-19 00:36] VITALS: BP 160/73; O2SAT 100
[2024-11-19 07:31] LABS: CALCIUM 7.5 mg/dL (8.5-10.1); CREATININE SERUM 1.22 mg/dL (0.70-1.30); GFR 58.39; POTASSIUM 5.81 mEq/L (3.5-5.1)
[2024-11-19 08:14] LABS: BASO % 0.5 % (0.1-1.2); EOS # 0.12 (0.04-0.54); EOS % 1.4 % (0.7-7.0); LYMPH # 2.42 (1.18-3.74); LYMPH % 28.8 % (19.3-53.1); MONO # 1.04 (0.24-0.82); NEUT # 4.69 (1.56-6.13); NEUT % 55.7 % (34.0-71.1); PLATELET COUNT 217 K/uL (163-369); RED BLOOD COUNT 3.07 M/uL (4.63-6.08); RED CELL DISTRIBUTION WIDTH 19.8 % (11.6-14.4)
[2024-11-19 08:19] VITALS: BP 165/79; O2SAT 96
[2024-11-19 08:31] LABS: HEMATOCRIT 26.5 % (40.1-51.0); HEMOGLOBIN 8.9 g/dL (13.7-17.5); MONO % 12.4 % (4.7-12.5)
[2024-11-19] MEDS ORDERED: FUROsemide 20 MG/2 ML VIAL IV PRN (09:30)
[2024-11-19 16:44] VITALS: BP 187/90; O2SAT 97
[2024-11-19] MEDS ORDERED: SOD FERRIC GLUC COMPLX/SUCROSE 62.5 MG/5 ML AMPUL IV NR (17:00)
[2024-11-19 21:30] VITALS: BP 184/88; O2SAT 98
[2024-11-20 00:55] VITALS: BP 155/69; O2SAT 97
[2024-11-20 06:07] LABS: BASO % 0.5 % (0.1-1.2); EOS # 0.18 (0.04-0.54); EOS % 2.3 % (0.7-7.0); LYMPH % 28.9 % (19.3-53.1); MEAN CORPUSCULAR HEMOGLOBIN 29.1 pg (25.6-32.2); MONO # 1.01 (0.24-0.82); NEUT # 4.25 (1.56-6.13); NEUT % 53.5 % (34.0-71.1); PLATELET COUNT 197 K/uL (163-369); RED BLOOD COUNT 3.06 M/uL (4.63-6.08); RED CELL DISTRIBUTION WIDTH 19.8 % (11.6-14.4)
[2024-11-20 06:37] LABS: CALCIUM 7.8 mg/dL (8.5-10.1); CREATININE SERUM 1.06 mg/dL (0.70-1.30); GFR 68.67; POTASSIUM 5.65 mEq/L (3.5-5.1)
[2024-11-20 07:19] LABS: HEMATOCRIT 26.6 % (40.1-51.0); MONO % 12.7 % (4.7-12.5)
[2024-11-20 08:03] VITALS: BP 153/70; O2SAT 97
[2024-11-20] MEDS ORDERED: SODIUM POLYSTYRENE SULFONATE 30G/8 TSP PO SCH (09:00)
[2024-11-20] MEDS ORDERED: ENOXAPARIN SODIUM 40 MG/0.4 ML SYRINGE SUBCUTANEO SCH (09:00)
[2024-11-20] MEDS ORDERED: SOD FERRIC GLUC COMPLX/SUCROSE 125 MG in 0.9 % SODIUM CHLORIDE 100 ML IV SCH (09:00)
[2024-11-20] MEDS ORDERED: AMLODIPINE BESYLATE 5 MG TABLET PO SCH (09:00)
[2024-11-20 09:24] LABS: HEMOGLOBIN 8.9 g/dL (13.7-17.5)
[2024-11-20] MEDS ORDERED: OMEPRAZOLE40 MG PO (15:06)
[2024-11-20] MEDS ORDERED: AMLODIPINE BESYL5 MG PO (15:06)
[2024-11-20] MEDS ORDERED: GABAPENTIN300 MG PO (15:06)
[2024-11-20] MEDS ORDERED: LOPERAMIDE2 MG PO (15:06)
[2024-11-20] MEDS ORDERED: FUSION PLUS CA1 EACH PO (15:06)
[2024-11-20] MEDS ORDERED: ABANEU-SL TABL1 EACH SL (15:06)
[2024-11-20] MEDS ORDERED: ATENOLOL50 MG PO (15:20)
[2024-11-20] MEDS ORDERED: TRAMADOL HCL50 MG PO (15:20)
[2024-11-20 15:35] VITALS: BP 188/87; O2SAT 99
== END 2024-11-20 15:11 | disposition home or self-care (01) | DRG 683 ==
LOC: ER 08:37 → ICU-2 14:55 → SURG 11-16 12:16
PROVIDERS: Emergency Medicine; Internal Medicine; Internal Medicine Nephrology; ADMIT Internal Medicine Geriatric Medicine; ATTEND Internal Medicine Geriatric Medicine
PROC: BT43ZZZ Ultrasonography of Bilateral Kidneys (ICD-10-PCS; principal; 2024-11-15)
PROC: BB24ZZZ Computerized Tomography (CT Scan) of Bilateral Lungs (ICD-10-PCS; 2024-11-15)
PROC: 4A12X4Z Monitoring of Cardiac Electrical Activity, External Approach (ICD-10-PCS; 2024-11-15)
PROC: 02HV33Z Insertion of Infusion Device into Superior Vena Cava, Percutaneous Approach (ICD-10-PCS; 2024-11-17)
PROC: B548ZZA Ultrasonography of Superior Vena Cava, Guidance (ICD-10-PCS; 2024-11-17)
DX: N17.9 Acute kidney failure, unspecified (principal); C20 Malignant neoplasm of rectum; E87.21 Acute metabolic acidosis; D62 Acute posthemorrhagic anemia; I12.9 Hypertensive chronic kidney disease with stage 1 through stage 4 chronic kidney disease, or unspecified chronic kidney disease; N18.9 Chronic kidney disease, unspecified; E87.5 Hyperkalemia; D64.89 Other specified anemias; R19.7 Diarrhea, unspecified; M10.9 Gout, unspecified; Z93.2 Ileostomy status; Z53.29 Procedure and treatment not carried out because of patient's decision for other reasons; R06.02 Shortness of breath

== ENCOUNTER 2025-02-06 07:00 | Day surgery (SDC) | payer OTHER ==
[~2025-02-06 07:00] MED LIST changes: +ABANEU-SL TABL1 EACH SL; +AMLODIPINE BESYL5 MG PO; +FUSION PLUS CA1 EACH PO; +GABAPENTIN300 MG PO; +LOPERAMIDE2 MG PO; +OMEPRAZOLE40 MG PO; +TRAMADOL HCL50 MG PO
[2025-02-06] MEDS ORDERED: DIPHENHYDRAMINE HCL 50 MG/ML VIAL 1ML IV ONE (10:15)
[2025-02-06] MEDS ORDERED: MIDAZOLAM HCL 2 MG/2 ML VIAL IV ONE (10:15)
[2025-02-06] MEDS ORDERED: fentaNYL CITRATE 50 MCG/ML AMPUL IV PUSH ONE (10:15)
== END 2025-02-06 12:40 | disposition home or self-care (01) ==
LOC: AMB-ENDOS 07:00
PROVIDERS: ATTEND Surgery
DX: D37.5 Neoplasm of uncertain behavior of rectum (principal); C20 Malignant neoplasm of rectum; K62.5 Hemorrhage of anus and rectum; K62.89 Other specified diseases of anus and rectum; R59.0 Localized enlarged lymph nodes

== ENCOUNTER 2025-02-28 07:27 | Outpatient (CLI) | payer OTHER | END 2025-02-28 07:52 | disposition home or self-care (01) | LOC: TOM 07:27 | PROVIDERS: ATTEND Surgery | DX: C20 Malignant neoplasm of rectum (principal); K62.5 Hemorrhage of anus and rectum; K62.89 Other specified diseases of anus and rectum; R59.0 Localized enlarged lymph nodes; N39.0 Urinary tract infection, site not specified | CPT/HCPCS: 74177; Q9965 ==